=== PATIENT | male | born 1990 | race Caucasian/White ===

== ENCOUNTER 2021-05-07 11:37 | Emergency (ER) | payer MEDICAID, SELFPAY ==
[~2021-05-07] VITALS: Ht 172.7 cm; Wt 77.1 kg
--- NOTE | 2021-05-07 12:16 | NUR ---
Pt triaged and placed in police car, accompanied by law enforcement.
--- NOTE | 2021-05-07 12:17 | NUR ---
Pt bib PD for ok to book/med clearance. C/O right arm pain "because they handcuffed me" V/S stable, no acute distress noted.
[2021-05-07 12:18] VITALS: BP_SYST 138
--- NOTE | 2021-05-07 14:50 | NUR ---
DEMI Au at bedside examining patient.
--- NOTE | 2021-05-07 15:00 | NUR ---
Patient given written and verbal discharge instructions and verbalizes understanding. ER MD discussed with patient the results and treatment provided. Patient in stable condition. ID arm band removed. No prescriptions given. Patient educated on pain management and to follow up with PMD. Pain Scale 0. Opportunity for questions provided and answered. Medication side effect fact sheet provided.
[2021-05-07 15:12] VITALS: BP_SYST 138
== END 2021-05-07 15:12 | disposition home or self-care (01) ==
LOC: SED 11:37
DX: Z02.89 Encounter for other administrative examinations (principal)
CPT/HCPCS: 99283